=== PATIENT | male | born 1940 | race Caucasian/White ===

== ENCOUNTER 2019-01-25 14:53 | Outpatient (REF) | payer OTHER, SELFPAY ==
[2019-01-25 21:40] LABS: Hemoglobin A1C 6.8 % (4.5-6.2)
[2019-01-25 21:44] LABS: ALT 49 U/L (16-63); AST 40 U/L (15-37); Albumin 3.9 g/dL (3.4-5.0); Alkaline Phosphatase 40 U/L (46-116); BUN 15 mg/dL (7-18); Bilirubin, Total 0.6 mg/dL (0.2-1.0); CREATININE 1.19 mg/dL (0.70-1.30); Calcium 9.1 mg/dL (8.5-10.1); Chloride 108 mmol/L (98-107); Estimated GFR 59.12 (mL/min/1.73m2); Glucose 133 mg/dL (70-100); Potassium 3.7 mmol/L (3.5-5.1); Sodium 144 mmol/L (136-145); Total Protein 7.3 g/dL (6.4-8.2)
== END 2019-01-25 15:13 ==
LOC: NCHCN 14:53
PROVIDERS: PCP Physician Assistant Medical; Visit Provider Nurse Practitioner Family
DX: Z00.00 Encounter for general adult medical examination without abnormal findings (principal); Z13.1 Encounter for screening for diabetes mellitus; Z68.32 Body mass index [BMI] 32.0-32.9, adult; Z13.228 Encounter for screening for other metabolic disorders
CPT/HCPCS: 80053; 83036

== ENCOUNTER 2022-03-05 13:00 | Outpatient (REF) | payer OTHER, SELFPAY ==
[2022-03-05 18:55] LABS: HCT 40.5 % (40.0-50.0); HGB 13.3 g/dL (13.5-17.5); MCH 32.3 pg (27.0-33.0); MCHC 32.8 % (32.0-36.0); MCV 98 fL (80-95); MPV 10.1 fL (8.0-11.0); Platelet Count 421 10^3/uL (130-400); RBC 4.12 10^6/uL (4.36-5.78); RDW 12.3 % (11.8-14.1); RDW-SD 45.2 fL; WBC 13.42 10^3/uL (4.4-10.8)
[2022-03-05 19:11] LABS: ALT 197 U/L (16-63); Anion Gap 8.4 mmol/L (3-11); BUN 12 mg/dL (7-18); CO2 27.6 mmol/L (21.0-32.0); Calcium 9.1 mg/dL (8.5-10.1); Calculated LDL 34 mg/dL (<100); Chloride 106 mmol/L (98-107); Cholesterol 78 mg/dL (<200); Estimated GFR 75.61 (mL/min/1.73m2); Glucose 157 mg/dL (74-106); HDL Cholesterol 27 mg/dL (40-60); Potassium 4.5 mmol/L (3.5-5.1); Sodium 142 mmol/L (136-145); Triglyceride 87 mg/dL (<150)
== END 2022-03-05 13:01 | disposition home or self-care (01) ==
LOC: NCHCN 13:00
PROVIDERS: PCP Physician Assistant Medical; Visit Provider Internal Medicine
DX: E78.5 Hyperlipidemia, unspecified (principal); I51.7 Cardiomegaly; I22.1 Subsequent ST elevation (STEMI) myocardial infarction of inferior wall; J01.90 Acute sinusitis, unspecified
CPT/HCPCS: 80048; 80061; 85027; 84460

== ENCOUNTER 2022-08-27 14:08 | Outpatient (REF) | payer MEDICARE, SELFPAY ==
[2022-08-27 18:59] LABS: ALT 39 U/L (16-63); AST 39 U/L (15-37); Alkaline Phosphatase 50 U/L (46-116); Anion Gap 7.3 mmol/L (3-11); BUN 17 mg/dL (7-18); CO2 28.7 mmol/L (21.0-32.0); CREATININE 1.2 mg/dL (0.70-1.30); Calcium 9.1 mg/dL (8.5-10.1); Calculated LDL 40 mg/dL (<100); Chloride 107 mmol/L (98-107); Cholesterol 93 mg/dL (<200); Estimated GFR 60.38 (mL/min/1.73m2); Glucose 127 mg/dL (74-106); HDL Cholesterol 42 mg/dL (40-60); Potassium 4.3 mmol/L (3.5-5.1); Sodium 143 mmol/L (136-145); Total Protein 7.9 g/dL (6.4-8.2); Triglyceride 58 mg/dL (<150)
[2022-08-28 21:49] LABS: PSA, Screening 3.6 ng/mL (<=6.5)
[2022-08-31 10:31] LABS: Bilirubin, Direct 0.2 mg/dL (0.0-0.2)
[2022-08-31 10:35] LABS: Iron 92 ug/dL (65-175); Total Iron Binding Capacity 228 ug/dL (250-450); Transferrin Sat 40 % (20-55)
[2022-09-01 10:01] LABS: Hepatitis C Ab w Rflx HCV PCR Negative (Negative)
== END 2022-08-27 14:09 | disposition home or self-care (01) ==
LOC: NCHCN 14:08
PROVIDERS: PCP Physician Assistant Medical; Visit Provider Internal Medicine
DX: R74.8 Abnormal levels of other serum enzymes (principal); I51.7 Cardiomegaly; N40.0 Benign prostatic hyperplasia without lower urinary tract symptoms
CPT/HCPCS: 80053; 80061; 80076; 84153; 86803; 83540; 83550

== ENCOUNTER 2023-09-02 14:47 | Outpatient (REF) | payer MEDICARE, SELFPAY ==
[2023-09-02 20:23] LABS: ALT 34 U/L (16-63); AST 32 U/L (15-37); Alkaline Phosphatase 55 U/L (46-116); Anion Gap 9.6 mmol/L (3-11); BUN 18 mg/dL (7-18); CO2 27.4 mmol/L (21.0-32.0); CREATININE 1.2 mg/dL (0.70-1.30); Calcium 9.5 mg/dL (8.5-10.1); Calculated LDL 39 mg/dL (<100); Chloride 106 mmol/L (98-107); Cholesterol 92 mg/dL (<200); Glucose 124 mg/dL (74-106); HDL Cholesterol 38 mg/dL (40-60); Potassium 4.3 mmol/L (3.5-5.1); Sodium 143 mmol/L (136-145); TSH 1.99 uIU/Ml (0.36-3.74); Total Protein 7.7 g/dL (6.4-8.2); Triglyceride 77 mg/dL (<150); Vitamin B12 387 pg/mL (193-986)
[2023-09-02 20:42] LABS: Creatine Kinase 242 U/L (39-308)
== END 2023-09-02 14:48 | disposition home or self-care (01) ==
LOC: NCHCN 14:47
PROVIDERS: PCP Physician Assistant Medical; Visit Provider Internal Medicine
DX: E78.5 Hyperlipidemia, unspecified (principal)
CPT/HCPCS: 80053; 80061; 82550; 82607; 84443

== ENCOUNTER 2024-11-16 23:09 | Outpatient (REF) | payer MEDICARE, SELFPAY ==
[2024-11-16 22:04] LABS: ALT 39 U/L (16-63); Anion Gap 7.6 mmol/L (3-11); BUN 14 mg/dL (7-18); CO2 27.4 mmol/L (21.0-32.0); Calcium 9.0 mg/dL (8.5-10.1); Calculated LDL 23 mg/dL (<100); Chloride 105 mmol/L (98-107); Cholesterol 88 mg/dL (<200); Estimated GFR 66.19 (mL/min/1.73m2); Glucose 124 mg/dL (74-106); HDL Cholesterol 33 mg/dL (>or=40); Magnesium 1.9 mg/dL (1.8-2.4); Potassium 4.4 mmol/L (3.5-5.1); Sodium 140 mmol/L (136-145); Triglyceride 162 mg/dL (<150)
[2024-11-16 22:42] LABS: Creatine Kinase 172 U/L (39-308)
== END 2024-11-16 23:10 | disposition home or self-care (01) ==
LOC: NCHCN 23:09
PROVIDERS: PCP Physician Assistant Medical; Visit Provider Internal Medicine
DX: E11.9 Type 2 diabetes mellitus without complications (principal); E78.5 Hyperlipidemia, unspecified; R41.89 Other symptoms and signs involving cognitive functions and awareness
CPT/HCPCS: 80048; 80061; 82550; 83735; 84460